=== PATIENT | female | born 1985 | race American Indian/Alaskan Native ===

== ENCOUNTER 2017-07-08 05:04 | Observation (INO) | payer OTHER ==
[2017-07-08 06:39] LABS: Mean Corpuscular HGB Conc 29 % (30-34); Platelet Count 914 K/mm3 (140-440); Red Blood Count 2.37 M/mm3 (3.65-5.03)
[2017-07-08 06:43] LABS: Mean Corpuscular Hemoglobin 19 pg (28-32); Mean Corpuscular Volume 66 fl (79-97); Red Cell Distribution Width 33.7 % (13.2-15.2)
[2017-07-08 06:47] LABS: Hematocrit 15.6 % (30.3-42.9); Hemoglobin 4.5 gm/dl (10.1-14.3)
[2017-07-08 06:52] LABS: BUN/Creatinine Ratio 17; Blood Urea Nitrogen 10 mg/dL (7-17); Calcium 8.9 mg/dL (8.4-10.2); Hemolysis Index 0
[2017-07-08] MEDS ORDERED: NACL 0.9% 500 ML 500 ML IV ONE (07:25)
--- NOTE | 2017-07-08 07:25 | Emergency Department Report ---
ED General Adult HPI - General Chief complaint: Dizziness Stated complaint: COLD SX, SWEATS Time Seen by Provider: 07/08/17 07:12 Source: patient Mode of arrival: Ambulatory Limitations: No Limitations - History of Present Illness Initial comments: Chief complaint: "I think I need some iron or blood transfusion." HPI: Ms. Wallace is a 32-year-old female with history of iron deficiency anemia. She required transfusion 3 years ago at [facility]. Recently she felt generally weak with lightheadedness, no history of syncope. She has diffuse facial pain. Her chest feels numb. She denies chest pain. She denies abdominal pain. She has heavy menses. She is currently menstruating. Her menses normally lasts 6 days. - Related Data Home Medications Medication Instructions Recorded Confirmed Last Taken No Known Home Medications [No 07/08/17 07/08/17 Unknown Reported Home Medications] Allergies Allergy/AdvReac Type Severity Reaction Status Date / Time No Known Allergies Allergy Unverified 07/08/17 05:58 ED Review of Systems ROS: Stated complaint: COLD SX, SWEATS Other details as noted in HPI Comment: All other systems reviewed and negative Constitutional: malaise. denies: fever Respiratory: denies: cough Cardiovascular: denies: palpitations ED Past Medical Hx - Past Medical History Additional medical history: Anemia - Surgical History Past Surgical History?: No - Social History Smoking Status: Current Every Day Smoker Substance Use Type: None - Medications Home Medications: Home Medications Medication Instructions Recorded Confirmed Last Taken Type No Known Home Medications [No 07/08/17 07/08/17 Unknown History Reported Home Medications] ED Physical Exam - General Limitations: No Limitations General appearance: alert, in no apparent distress - Head Head exam: Present: atraumatic, normocephalic - Eye Eye exam: Present: normal appearance - ENT ENT exam: Present: normal exam, normal orophraynx, mucous membranes moist - Neck Neck exam: Present: normal inspection - Respiratory Respiratory exam: Present: normal lung sounds bilaterally. Absent: respiratory distress, wheezes, rales, rhonchi - Cardiovascular Cardiovascular Exam: Present: regular rate, normal rhythm, normal heart sounds. Absent: bradycardia, tachycardia, systolic murmur, diastolic murmur, rubs, gallop - GI/Abdominal GI/Abdominal exam: Present: soft, normal bowel sounds. Absent: distended, tenderness, guarding, rebound - Rectal Rectal exam: Present: normal rectal tone, heme (-) stool, other (Brown stool). Absent: black stool, bloody stool, fecal impaction, hemorrhoids - Extremities Exam Extremities exam: Present: normal inspection - Back Exam Back exam: Present: normal inspection - Neurological Exam Neurological exam: Present: alert, oriented X3 - Psychiatric Psychiatric exam: Present: normal affect, normal mood - Skin Skin exam: Present: warm, dry, intact, normal color. Absent: rash ED Course Vital Signs 07/08/17 05:50 Temperature 98.3 F Pulse Rate 91 H Respiratory 20 Rate Blood Pressure 124/81 O2 Sat by Pulse 100 Oximetry ED Medical Decision Making - Lab Data Result diagrams: 07/08/17 06:04 07/08/17 06:04 Laboratory Results - last 24 hr 07/08/17 07/08/17 06:04 06:04 WBC 11.4 H RBC 2.37 L Hgb 4.5 L* Hct 15.6 L* MCV 66 L MCH 19 L MCHC 29 L RDW 33.7 H Plt Count 914 H Sodium 142 Potassium 4.8 Chloride 106.0 Carbon Dioxide 24 Anion Gap 17 BUN 10 Creatinine 0.6 L Estimated GFR > 60 BUN/Creatinine Ratio 17 Glucose 95 Calcium 8.9 Vital Signs - 24 hr 07/08/17 05:50 Temperature 98.3 F Pulse Rate 91 H Respiratory 20 Rate Blood Pressure 124/81 O2 Sat by Pulse 100 Oximetry - EKG Data 07/08/17 07:34 EKG obtained at 607 Normal sinus rhythm rate of 75 beats a minute normal axis normal intervals no ST elevation no T-wave abnormality - Medical Decision Making Ms. Wallace has hx of iron-deficiency anemia. She is now symptomatic with low H/ H 4/5/15.6. She desires transfusion. Dr. Fairbanks hospitalist accepted pt for admission. Critical care attestation.: If time is entered above; I have spent that time in minutes in the direct care of this critically ill patient, excluding procedure time. ED Disposition Clinical Impression: Iron deficiency anemia Disposition: OP ADMIT IP TO THIS HOSP Is pt being admited?: No Does the pt Need Aspirin: No Condition: Stable Time of Disposition: 07:42
[2017-07-08 08:11] LABS: Total Cells Counted 100
[2017-07-08 08:12] LABS: Anisocytosis 3+; Hypochromasia 3+; Poikilocytosis 1+; Tear Drop Cells 1+
[2017-07-08 08:13] LABS: Platelet Estimate Cons
[2017-07-08] MEDS ORDERED: NACL 0.9% 1000 ML 1,000 ML IV SCH (09:00)
--- NOTE | 2017-07-08 10:10 | History and Physical Report ---
History of Present Illness Date of examination: 07/08/17 Date of admission: 07/08/17 07:43 Chief complaint: generalized weakness History of present illness: Ms. Wallace is a 32-year-old female with history of iron deficiency anemia who required transfusion 3 years ago at [facility] presented with generalized weakness, lightheadedness for a week. Denies any history of syncope , chest pain or SOB. She states that she has heavy menses and currently menstruating. Her period normally lasts 6 days. She states that 3 years ago when she required blood transfusion she was told that she had iron deficiency, but she cannot tell any further details. In the Er her Hb noted to be 4.5. Blood transfusion started in the Er and called for admission for further evaluation. Past medical History: h/o iron deficiency anemia. Past surgical History: None Social History: Lives with family, denies any smoking, drinking and elicit drug abuse. Family History: No Significant h/o CAD, DM, stroke in the family. Review of System: Constitutional: no fever, no chills, no weight loss Ears, eyes, nose, mouth and throat: no nasal congestion, no nasal discharge, no sinus pressure, no vision change, no red eye. Neck: No neck pain or rigidity. Cardiovascular: No chest pain, no orthopnea, no palpitations, no leg swelling Respiratory: No shortness of breath, no cough, no congestion, no wheezing Gastrointestinal: no abdominal pain, no nausea, no vomiting Genitourinary : no dysuria, no hematuria, + menorrhagia Musculoskeletal: no joint swelling or muscle ache Integumentary: no rash, no pruritis Neurological: no parathesias, no numbness, no tingling Endocrine: no cold or heat intolerance, no polyuria or polydipsia Hematologic/Lymphatic: no easy bruising, no easy bleeding, no gland swelling Allergic/Immunologic: no urticaria, no angioedema. Medications and Allergies Allergies Allergy/AdvReac Type Severity Reaction Status Date / Time No Known Allergies Allergy Unverified 07/08/17 05:58 Home Medications Medication Instructions Recorded Confirmed Last Taken Type Ferrous Sulfate [Feosol 325 MG tab] 325 mg PO QDAY #30 tablet 07/09/17 Unknown Rx Active Meds: Active Medications Sodium Chloride (Nacl 0.9% 1000 Ml) 1,000 mls @ 100 mls/hr IV DIRECT BILL Exam - Physical Exam Narrative exam: GENERAL: well-developed and well-nourished AAF lying on bed appeared to be in no discomfort. HEENT: Normocephalic. Atraumatic. No conjunctival congestion or icterus. Patient has moist mucous membranes. NECK: Supple. Trachea midline. CHEST/LUNGS: Clear to auscultated bilaterally, breathing nonlabored. No wheezes crackles or rhonchi. HEART/CARDIOVASCULAR: Regular in rate and rhythm. S1 and S2 positive. ABDOMEN: Abdomen is soft, nontender. Patient has normal bowel sounds. SKIN: There is no rash. Warm and dry. NEURO: No focal motor deficit. Follows command. MUSCULOSKELETAL: No joint effusion or tenderness. EXTRIMITY: No edema, no cyanosis or clubbing. PSYCH: Cooperative. - Constitutional Vitals: Temp Pulse Resp BP Pulse Ox 98.6 F 84 16 102/53 100 07/08/17 09:45 07/08/17 09:45 07/08/17 09:45 07/08/17 09:45 07/08/17 09:45 Results - Labs CBC & Chem 7: 07/09/17 07:40 07/08/17 06:04 Labs: Abnormal lab results 07/08/17 07/08/17 07/08/17 Range/Units 06:04 06:04 06:05 WBC 11.4 H (4.5-11.0) K/mm3 RBC 2.37 L (3.65-5.03) M/mm3 Hgb 4.5 L* (10.1-14.3) gm/dl Hct 15.6 L* (30.3-42.9) % MCV 66 L (79-97) fl MCH 19 L (28-32) pg MCHC 29 L (30-34) % RDW 33.7 H (13.2-15.2) % Plt Count 914 H (140-440) K/mm3 Nucleated RBC % 2.0 H (0.0-0.9) % Seg Neutrophils # Man 8.0 H (1.8-7.7) K/mm3 Eosinophils # (Manual) 0.5 H (0.0-0.4) K/mm3 Creatinine 0.6 L (0.7-1.2) mg/dL Crossmatch See Detail Assessment and Plan Severe symptomatic anemia - likely Due to underlying menorrhagia - Patient was transfused 2 units in the ER - We will repeat H&H and will transfuse additional units if hemoglobin less than 7 History of menorrhagia - Likely due to fibroids, will order pelvic US - 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
[2017-07-09] MEDS ORDERED: NORCO 5/325 PO PRN (07:18)
[2017-07-09] MEDS ORDERED: REGLAN PO PRN (07:18)
[2017-07-09] MEDS ORDERED: TYLENOL PO PRN (07:18)
[2017-07-09 08:15] LABS: Hematocrit 21.9 % (30.3-42.9); Hemoglobin 6.9 gm/dl (10.1-14.3); Mean Corpuscular HGB Conc 32 % (30-34); Mean Corpuscular Volume 70 fl (79-97); Platelet Count 909 K/mm3 (140-440); Red Blood Count 3.12 M/mm3 (3.65-5.03)
[2017-07-09 08:18] LABS: Mean Corpuscular Hemoglobin 22 pg (28-32); Red Cell Distribution Width 32.4 % (13.2-15.2)
[2017-07-09] MEDS: PEPCID PO SCH ×2 (10:39→23:59)
[2017-07-09 11:36] LABS: Basophils % (Manual) 0 % (0.0-1.8); Total Cells Counted 100
[2017-07-09 11:37] LABS: Anisocytosis 3+; Hypochromasia 2+; Poikilocytosis 1+; Tear Drop Cells 1+
[2017-07-09 11:38] LABS: Large Platelets Few; Platelet Estimate Appe
[2017-07-09] MEDS ORDERED: NACL 0.9% 500 ML 500 ML IV ONE (14:00)
--- NOTE | 2017-07-09 17:10 | Ultrasound Report ---
FINAL REPORT EXAM: US TRANSVAGINAL HISTORY: menorrhagia TECHNIQUE: Ultrasound pelvis transvaginal PRIORS: None. FINDINGS: And the uterus measures 10.9 x 6.5 x 7.6 centimeters. At the fundus of the uterus there are 3 subserosal fibroids largest measuring 2.9 x 2.8 x 2.3 centimeters at the anterior aspect of the fundus. Endometrial stripe is 0.77 centimeters Right ovary is 3.8 x 2.9 x 3.2 centimeters. No abnormal mass or cyst identified. Left ovary is 3.6 x 3.1 x 3.2 centimeters. There is a 1.5 centimeter left ovarian cyst most likely dominant follicle No free fluid identified in the cul-de-sac IMPRESSION: Enlarged multi fibroid uterus
--- NOTE | 2017-07-09 17:16 | Ultrasound Report ---
FINAL REPORT EXAM: US PELVIC COMPLETE HISTORY: menorrhagia TECHNIQUE: Ultrasound pelvis transabdominal with pulsed and color Doppler evaluation PRIORS: None. FINDINGS: And the uterus measures 10.9 x 6.5 x 7.6 centimeters. At the fundus of the uterus there are 3 subserosal fibroids largest measuring 2.9 x 2.8 x 2.3 centimeters at the anterior aspect of the fundus. Endometrial stripe is 0.77 centimeters Right ovary is 3.8 x 2.9 x 3.2 centimeters. No abnormal mass or cyst identified. Left ovary is 3.6 x 3.1 x 3.2 centimeters. There is a 1.5 centimeter left ovarian cyst most likely dominant follicle No free fluid identified in the cul-de-sac IMPRESSION: Enlarged multi fibroid uterus
--- NOTE | 2017-07-09 18:12 | Progress Note ---
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 HEENT: Normocephalic. Atraumatic. No conjunctival congestion or icterus. Patient has moist mucous membranes. NECK: Supple. Trachea midline. CHEST/LUNGS: Clear to auscultated bilaterally, breathing nonlabored. No wheezes crackles or rhonchi. HEART/CARDIOVASCULAR: Regular in rate and rhythm. S1 and S2 positive. ABDOMEN: Abdomen is soft, nontender. Patient has normal bowel sounds. SKIN: There is no rash. Warm and dry. NEURO: No focal motor deficit. Follows command. MUSCULOSKELETAL: No joint effusion or tenderness. EXTRIMITY: No edema, no cyanosis or clubbing. PSYCH: Cooperative. - Constitutional Vitals: Vital Signs - 12hr 07/09/17 07/09/17 07/09/17 07:25 15:38 16:33 Temperature 98.9 F 98.3 F 98.6 F Pulse Rate 66 76 64 Respiratory 15 18 15 Rate Blood Pressure 131/74 118/71 114/64 O2 Sat by Pulse 100 100 100 Oximetry 07/09/17 16:51 Temperature 98.7 F Pulse Rate 74 Respiratory 18 Rate Blood Pressure 108/63 O2 Sat by Pulse 100 Oximetry - Labs CBC & Chem 7: 07/10/17 04:53 07/08/17 06:04 Labs: Abnormal lab results 07/08/17 07/09/17 Range/Units 06:05 07:40 RBC 3.12 L (3.65-5.03) M/mm3 Hgb 6.9 L (10.1-14.3) gm/dl Hct 21.9 L D (30.3-42.9) % MCV 70 L (79-97) fl MCH 22 L (28-32) pg RDW 32.4 H (13.2-15.2) % Plt Count 909 H (140-440) K/mm3 Nucleated RBC % 1.0 H (0.0-0.9) % Crossmatch See Detail
[2017-07-09 23:30] LABS: Hematocrit 25.7 % (30.3-42.9); Hemoglobin 8.1 gm/dl (10.1-14.3)
[2017-07-10 05:27] LABS: Hematocrit 26.5 % (30.3-42.9); Hemoglobin 8.4 gm/dl (10.1-14.3); Mean Corpuscular HGB Conc 32 % (30-34); Mean Corpuscular Volume 72 fl (79-97); Platelet Count 851 K/mm3 (140-440); Red Blood Count 3.68 M/mm3 (3.65-5.03)
[2017-07-10 06:07] LABS: Mean Corpuscular Hemoglobin 23 pg (28-32); Red Cell Distribution Width 30.8 % (13.2-15.2)
[2017-07-10 08:09] LABS: Basophils % (Manual) 0 % (0.0-1.8); Total Cells Counted 100
[2017-07-10 08:10] LABS: Anisocytosis 3+; Giant Platelets Few; Hypochromasia 2+; Tear Drop Cells 1+
[2017-07-10 08:11] LABS: Platelet Estimate Appears Increased
[2017-07-10 08:43] VITALS: BP 122/67
[2017-07-10] MEDS: PEPCID PO SCH (09:09)
--- NOTE | 2017-07-10 10:10 | Discharge Summary ---
Providers - Providers Date of Admission: 07/08/17 07:43 Date of discharge: 07/10/17 Attending physician: AMBER HARRIS 07/09/17 10:10 Consult to Physician [CONS] Routine Consulting Provider: ANSELMO ABURTO Reason For Exam: menorrhagia Place consult to:: global expansion sales director obg/obgyn nurse Notified:: DR. Emily ABURTO OFFICE Phone number called:: [phone] Was contact made?: Yes If yes, spoke with:: TERESE Time called:: 11:20 Comment:: JANET NOTIFIED Primary care physician: FIELD ACCOUNT MANAGER Hospitalization Condition: Stable Hospital course: Ms. Wallace is a 32-year-old female with history of iron deficiency anemia who required transfusion 3 years ago at [facility] presented with generalized weakness, lightheadedness for a week. In the Er her Hb noted to be 4.5. Blood transfusion started in the Er and called for admission for further evaluation. 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 HEENT: Normocephalic. Atraumatic. No conjunctival congestion or icterus. Patient has moist mucous membranes. NECK: Supple. Trachea midline. CHEST/LUNGS: Clear to auscultated bilaterally, breathing nonlabored. No wheezes crackles or rhonchi. HEART/CARDIOVASCULAR: Regular in rate and rhythm. S1 and S2 positive. ABDOMEN: Abdomen is soft, nontender. Patient has normal bowel sounds. SKIN: There is no rash. Warm and dry. NEURO: No focal motor deficit. Follows command. MUSCULOSKELETAL: No joint effusion or tenderness. EXTRIMITY: No edema, no cyanosis or clubbing. PSYCH: Cooperative. - Constitutional Vitals: Temp Pulse Resp BP Pulse Ox 98.0 F 65 18 122/67 99 07/10/17 07:23 07/10/17 07:23 07/10/17 07:23 07/10/17 07:23 07/10/17 07:23 - Respiratory Respiratory: bilateral: CTA - Cardiovascular Heart Sounds: Absent: rub, click Plan Activity: advance as tolerated Weight Bearing Status: Weight Bear as Tolerated Diet: regular Follow up with: PRIMARY CARE, [Primary Care Provider] - 7 Days Prescriptions: Ferrous Sulfate [Feosol 325 MG tab] 325 mg PO QDAY #30 tablet
== END 2017-07-10 14:00 | disposition home or self-care (01) ==
LOC: ED 05:04 → 3A 07:43
PROVIDERS: ADMIT Internal Medicine; ATTEND Internal Medicine
DX: D50.9 Iron deficiency anemia, unspecified (principal); D47.3 Essential (hemorrhagic) thrombocythemia; D72.829 Elevated white blood cell count, unspecified; F17.200 Nicotine dependence, unspecified, uncomplicated
CPT/HCPCS: 36415; 36430; 76830; 76856; 80048; 85007; 85014; 85018; 85025; 86850; 86900; 86901; 86920; 93005; 93010; 96360; 96361; 99285; 99406; G0378; J7030; J7040; P9016

== ENCOUNTER 2018-01-01 22:07 | Inpatient (IN) | payer SELFPAY ==
[2018-01-02 02:05] LABS: BUN/Creatinine Ratio 13; Blood Urea Nitrogen 9 mg/dL (7-17); Calcium 9.5 mg/dL (8.4-10.2); Hemolysis Index 0
[2018-01-02 02:09] LABS: Hematocrit 21.7 % (30.3-42.9); Hemoglobin 6.4 gm/dl (10.1-14.3); Mean Corpuscular HGB Conc 30 % (30-34); Mean Corpuscular Hemoglobin 17 pg (28-32); Mean Corpuscular Volume 59 fl (79-97); Platelet Count 510 K/mm3 (140-440); Red Blood Count 3.68 M/mm3 (3.65-5.03); Red Cell Distribution Width 19.9 % (13.2-15.2)
[2018-01-02 02:54] LABS: Bilirubin,Urine NEG (Negative); Blood,Urine NEG (Negative); Color,Urine Yellow (Yellow); Mucus,Urine 2+ /HPF; Protein,Urine <15 mg/dL mg/dL (Negative)
[2018-01-02] MEDS ORDERED: NACL 0.9% 500 ML 500 ML IV ONE ×2 (05:48→08:10)
--- NOTE | 2018-01-02 06:04 | XRay Report ---
FINAL REPORT EXAM: XR CHEST ROUTINE 2V HISTORY: weakness TECHNIQUE: PA and lateral chest radiographs PRIORS: None. FINDINGS: No mediastinal shift. Cardiac silhouette is not enlarged. No pneumothorax, effusion, or focal pulmonary opacity. No acute skeletal finding. IMPRESSION: No focal pulmonary opacity.
[2018-01-02 06:47] LABS: Band Neutrophils # (Manual) 0.3 K/mm3; Basophils % (Manual) 0 % (0.0-1.8); Total Cells Counted 100
[2018-01-02 06:48] LABS: Anisocytosis 3+; Hypochromasia 2+; Large Platelets Few; Ovalocytes Few; Platelet Estimate Appears Increased; Tear Drop Cells 1+
[2018-01-02 07:13] LABS: Bilirubin,Urine NEG (Negative); Blood,Urine NEG (Negative); Color,Urine Yellow (Yellow); Mucus,Urine 3+ /HPF; Protein,Urine <15 mg/dL mg/dL (Negative)
[2018-01-02 07:13] LABS: INR 0.95 (0.87-1.13)
--- NOTE | 2018-01-02 07:57 | Emergency Department Report ---
- General Chief complaint: Weakness Stated complaint: POSS LOW IRON/STD CHECK/ACNE Time Seen by Provider: 01/02/18 07:56 Source: patient Mode of arrival: Ambulatory Limitations: No Limitations - History of Present Illness Initial comments: 32-year-old female presents emergency room for weakness 4 days. Patient states that she has iron deficiency anemia and is not able to take her iron pills due to upsetting her stomach. Patient states his been months that she is taking her iron pills. Patient denies abdominal pain. Patient denies rectal bleeding patient denies vomiting blood. Patient denies nausea vomiting. Patient denies chest pain shortness of breath. Patient's only complaint is weakness. Patient states her last menstrual period was 12/28/2017. She also states she would like to be checked for STDs. Patient denies vaginal discharge and dysuria. Patient denies urinary complaints. Patient denies fever or chills. MD Complaint: generalized weakness -: Gradual Consistency: constant Improves with: rest Worsens with: medication Associated Symptoms: denies other symptoms. denies: chest pain, confusion, dark stools, diaphoresis, dysuria, easy bruising, fever/chills, headaches, loss of appetite, nausea/vomiting, myalgias, rash, shortness of breath, syncope - Related Data Previous Rx's Medication Instructions Recorded Last Taken Type Ferrous Sulfate [Feosol 325 MG tab] 325 mg PO QDAY #30 tablet 07/09/17 Unknown Rx Allergies Allergy/AdvReac Type Severity Reaction Status Date / Time No Known Allergies Allergy Unverified 07/08/17 05:58 ED Review of Systems ROS: Stated complaint: POSS LOW IRON/STD CHECK/ACNE Other details as noted in HPI Constitutional: weakness. denies: chills, fever Eyes: denies: eye pain, eye discharge, vision change ENT: denies: ear pain, throat pain Respiratory: denies: cough, shortness of breath, wheezing Cardiovascular: denies: chest pain, palpitations Endocrine: no symptoms reported Gastrointestinal: denies: abdominal pain, nausea, diarrhea Genitourinary: denies: urgency, dysuria, discharge Musculoskeletal: denies: back pain, joint swelling, arthralgia Skin: denies: rash, lesions Neurological: weakness. denies: headache, paresthesias Psychiatric: denies: anxiety, depression Hematological/Lymphatic: denies: easy bleeding, easy bruising ED Past Medical Hx - Past Medical History Previous Medical History?: Yes Hx Congestive Heart Failure: No Hx Diabetes: No Hx Sickle Cell Disease: No Hx Asthma: No Hx COPD: No Hx HIV: No Additional medical history: Anemia - Surgical History Past Surgical History?: No Hx Open Heart Surgery: No Hx Cholecystectomy: No Hx Appendectomy: No Hx Breast Surgery: No - Family History Family history: no significant - Social History Smoking Status: Current Every Day Smoker Substance Use Type: Alcohol, Marijuana - Medications Home Medications: Home Medications Medication Instructions Recorded Confirmed Last Taken Type Ferrous Sulfate [Feosol 325 MG tab] 325 mg PO QDAY #30 tablet 07/09/17 Unknown Rx ED Physical Exam - General Limitations: No Limitations General appearance: alert, in no apparent distress - Head Head exam: Present: atraumatic, normocephalic - Eye Eye exam: Present: normal appearance - ENT ENT exam: Present: mucous membranes moist - Neck Neck exam: Present: normal inspection - Respiratory Respiratory exam: Present: normal lung sounds bilaterally. Absent: respiratory distress - Cardiovascular Cardiovascular Exam: Present: regular rate, normal rhythm. Absent: systolic murmur, diastolic murmur, rubs, gallop - GI/Abdominal GI/Abdominal exam: Present: soft, normal bowel sounds - Extremities Exam Extremities exam: Present: normal inspection - Back Exam Back exam: Present: normal inspection - Neurological Exam Neurological exam: Present: alert, oriented X3 - Psychiatric Psychiatric exam: Present: normal affect, normal mood - Skin Skin exam: Present: warm, dry, intact, normal color. Absent: rash - Assessment Assessment Interval: Baseline - Level of Consciousness 1a. Level of Consciousness: alert - LOC Questions 1b. LOC Questions: answers correctly - LOC Command 1c. LOC Commands: performs tasks correctly - Best Gaze 2. Best Gaze: normal - Visual 3. Visual: no visual loss - Facial Palsy 4. Facial Palsy: normal symmetrical movement - Motor Arm 5b. Motor Arm Right: no drift 5a. Motor Arm Left: no drift - Motor Leg 6a. Motor Leg Left: no drift 6b. Motor Leg Right: no drift - Limb Ataxia 7. Limb Ataxia: absent - Sensory 8. Sensory: normal - Best Language 9. Best Language: no aphasia - Dysarthria 10. Dysarthria: normal - Extinction and Inattention 11. Extinction/Inattention: no abnormality - Scoring Total Score: 0 Stroke Severity: No Stroke Symptoms ED Course Vital Signs 01/01/18 01/02/18 01/02/18 23:59 07:18 07:20 Temperature 98.5 F Pulse Rate 95 H 79 85 Respiratory 16 16 16 Rate Blood Pressure 138/71 138/75 Blood Pressure [Right] O2 Sat by Pulse 100 100 Oximetry 01/02/18 01/02/18 01/02/18 07:30 07:37 07:40 Temperature 98.3 F Pulse Rate 73 78 64 Respiratory 13 12 16 Rate Blood Pressure 138/75 138/75 Blood Pressure 138/75 [Right] O2 Sat by Pulse 100 100 100 Oximetry 01/02/18 01/02/18 01/02/18 07:50 08:00 08:10 Temperature Pulse Rate 69 86 75 Respiratory 13 12 17 Rate Blood Pressure 138/75 138/75 138/75 Blood Pressure [Right] O2 Sat by Pulse 100 100 Oximetry 01/02/18 01/02/18 01/02/18 08:20 08:30 08:40 Temperature Pulse Rate 68 67 69 Respiratory 13 15 14 Rate Blood Pressure 138/75 138/75 138/75 Blood Pressure [Right] O2 Sat by Pulse 100 100 100 Oximetry 01/02/18 01/02/18 01/02/18 08:50 09:00 09:05 Temperature 98.4 F Pulse Rate 85 72 73 Respiratory 20 12 14 Rate Blood Pressure 138/75 138/75 114/74 Blood Pressure [Right] O2 Sat by Pulse 100 Oximetry 01/02/18 01/02/18 01/02/18 09:10 09:20 09:25 Temperature 98.3 F Pulse Rate 68 63 69 Respiratory 14 12 14 Rate Blood Pressure 114/74 114/74 129/78 Blood Pressure [Right] O2 Sat by Pulse 100 100 100 Oximetry 01/02/18 01/02/18 01/02/18 09:30 09:40 09:50 Temperature Pulse Rate 64 99 H 69 Respiratory 15 20 14 Rate Blood Pressure 129/78 129/78 129/78 Blood Pressure [Right] O2 Sat by Pulse 100 63 L 100 Oximetry 01/02/18 01/02/18 01/02/18 09:55 10:00 10:10 Temperature 97.5 F L Pulse Rate 67 68 64 Respiratory 16 13 11 L Rate Blood Pressure 141/84 147/84 129/78 Blood Pressure [Right] O2 Sat by Pulse 100 100 100 Oximetry 01/02/18 01/02/18 01/02/18 10:20 10:30 10:40 Temperature 97.7 F Pulse Rate 85 65 68 Respiratory 16 11 L 12 Rate Blood Pressure 129/78 129/78 129/78 Blood Pressure [Right] O2 Sat by Pulse 100 100 98 Oximetry 01/02/18 10:50 Temperature Pulse Rate 71 Respiratory 17 Rate Blood Pressure 129/78 Blood Pressure [Right] O2 Sat by Pulse 95 Oximetry - Reevaluation(s) Reevaluation #1: Discussed plan of care with patient. Patient agrees with plan of care. Patient informed that procedure can be done as an outpatient at a health department. Or possibly taken care of by the admitting team. Patient to be admitted to the hospitalist service for further evaluation and treatment. Patient agrees with admission. All results DISCUSSED with patient 01/02/18 08:08 01/02/18 08:09 - Consultations Consultation #1: Dr. Fairbanks consulted for admission. Patient will be admitted to the hospitalist service. Hospitalist to assumed care. 01/02/18 08:09 ED Medical Decision Making - Lab Data Result diagrams: 01/02/18 01:07 01/02/18 01:07 - Radiology Data Radiology results: report reviewed, image reviewed interpreted by me: No acute findings on chest x-ray EXAM: XR CHEST ROUTINE 2V HISTORY: weakness TECHNIQUE: PA and lateral chest radiographs PRIORS: None. FINDINGS: No mediastinal shift. Cardiac silhouette is not enlarged. No pneumothorax, effusion, or focal pulmonary opacity. No acute skeletal finding. IMPRESSION: No focal pulmonary opacity. Transcribed By: MB Dictated By: SHAHLA VERA MD Electronically Authenticated By: SHAHLA VERA MD Signed Date/Time: 01/02/18 0557 - Medical Decision Making Patient is a 32-year-old female that presents to emergency room with complaints of weakness patient found to be severely anemic and will be admitted to hospital service for observation and transfusion. Patient to be admitted to the hospitalist service for further evaluation treatment. Patient also presents emergency room with complaints of acne and wanting STD screening. Patient informed she can take care of this on the inpatient side or take care of it as an outpatient. - Differential Diagnosis weakness. anemia. dehydration. Critical care attestation.: If time is entered above; I have spent that time in minutes in the direct care of this critically ill patient, excluding procedure time. ED Disposition Clinical Impression: Severe anemia, Weakness Iron deficiency anemia Qualifiers: Iron deficiency anemia type: unspecified iron deficiency Qualified Code(s): D50.9 - Iron deficiency anemia, unspecified Disposition: OP ADMIT IP TO THIS HOSP Is pt being admited?: Yes Does the pt Need Aspirin: No Condition: Serious Time of Disposition: 08:12
--- NOTE | 2018-01-02 08:10 | History and Physical Report ---
History of Present Illness Date of examination: 01/02/18 Date of admission: 01/02/18 Chief complaint: General weakness and severe anemia History of present illness: Very pleasant 32-year-old -N[place]alese female patient with significant past medical history of menorrhagia secondary to fibroid uterus Admitted 6 months ago, received blood transfusion, ultrasound consistent with fibroid uterus, did not follow-up with [facility] H[facility] Presented to the emergency room with generalized weakness, and deficiency anemia. Patient denies any vaginal bleeding last menstrual period was 12/28/2017 Denies nausea or vomiting or abdominal pain, no hematemesis melena, no hematuria Complaints of generalized weakness worsening shortness of breath on exertion and fatigue Initial workup consistent with severe anemia hemoglobin of 6.4 Denies chest pain or shortness of breath Past History Past Medical History: anemia (iron deficiency anemia), other (menorrhagia, fibroid uterus) Past Surgical History: No surgical history Social history: smoking, alcohol abuse, other (marijuana) Family history: hypertension Medications and Allergies Allergies Allergy/AdvReac Type Severity Reaction Status Date / Time No Known Allergies Allergy Unverified 07/08/17 05:58 Home Medications Medication Instructions Recorded Confirmed Last Taken Type Ferrous Sulfate [Feosol 325 MG tab] 325 mg PO QDAY #30 tablet 07/09/17 Unknown Rx Review of Systems Constitutional: fatigue, weakness, no weight loss, no weight gain Ears, nose, mouth and throat: no nasal congestion, no nasal discharge Cardiovascular: no chest pain, no orthopnea, no palpitations Respiratory: no cough, no shortness of breath Gastrointestinal: no abdominal pain, no nausea, no vomiting Genitourinary Female: menorrhagia, no flank pain, no dysuria Musculoskeletal: no myalgias, no arthritis Integumentary: no rash, no lesions Neurological: weakness, no seizures, no syncope Psychiatric: no anxiety, no depression Endocrine: no cold intolerance, no heat intolerance, no polydipsia, no polyuria Hematologic/Lymphatic: no easy bruising, no easy bleeding Allergic/Immunologic: no urticaria, no allergic rhinitis Exam - Constitutional Vitals: Temp Pulse Resp BP Pulse Ox 98.3 F 78 12 138/75 100 01/02/18 07:37 01/02/18 07:37 01/02/18 07:37 01/02/18 07:37 01/02/18 07:37 General appearance: Present: no acute distress, well-nourished - EENT Eyes: Present: PERRL, EOM intact - Neck Neck: Present: supple, normal ROM - Respiratory Respiratory effort: normal Respiratory: negative: rales, rhonchi, wheezing - Cardiovascular Rhythm: regular Heart Sounds: Present: S1 & S2 - Extremities Extremities: no ischemia, No edema - Abdominal General gastrointestinal: Present: soft, non-tender, non-distended, normal bowel sounds - Integumentary Integumentary: Present: clear, warm, pale - Musculoskeletal Musculoskeletal: strength equal bilaterally, generalized weakness - Psychiatric Psychiatric: appropriate mood/affect, cooperative - Neurologic Neurologic: CNII-XII intact, moves all extremities Results - Labs CBC & Chem 7: 01/02/18 01:07 01/02/18 01:07 Labs: Abnormal lab results 01/02/18 01/02/18 01/02/18 Range/Units 01:07 06:07 Unknown Hgb 6.4 L (10.1-14.3) gm/dl Hct 21.7 L (30.3-42.9) % MCV 59 L (79-97) fl MCH 17 L (28-32) pg RDW 19.9 H (13.2-15.2) % Plt Count 510 H (140-440) K/mm3 Eosinophils % (Manual) 7.0 H (0.0-4.3) % Nucleated RBC % 6.0 H (0.0-0.9) % Eosinophils # (Manual) 0.7 H (0.0-0.4) K/mm3 Urine WBC (Auto) 11.0 H (0.0-6.0) /HPF U Epithel Cells (Auto) 18.0 H (0-13.0) /HPF Crossmatch See Detail Assessment and Plan --Symptomatic anemia; Supportive care, transfuse 2 units PRBC, and supplements ---Deficiency anemia; secondary to chronic blood loss Due to menorrhagia, blood transfusion, iron supplements --History of menorrhagia; secondary to fibroid uterus Continue supportive care, patient advised to follow [facility] HISTORIAN upon discharge --History of fibroid uteru; advised to follow [facility] HISTORIAN for further evaluation and management --Thrombocytosis; probably secondary to reactive thrombocytosis --Ongoing tobacco use; smoking cessation counseling, nicotine patch as needed --Recreational drug use; strongly advised to quit recreational drugs, counseling done --DVT prophylaxis; SCDs, no pharmacologic anticoagulation Secondary to severe anemia Closely monitor the patient, if hemoglobin level is reasonable If patient's symptoms improved, patient may be discharged home tomorrow Plan of care reviewed with the patient and her nurse
[2018-01-02] MEDS ORDERED: NACL 0.9% 500 ML 500 ML ONE ×2 (08:53→21:45)
[2018-01-02] MEDS ORDERED: PROTONIX PO ONE (09:32)
[2018-01-02] MEDS: FEOSOL PO SCH (09:40)
[2018-01-02] MEDS: PROTONIX PO SCH (09:40)
[2018-01-03] MEDS: FEOSOL PO SCH (11:06)
[2018-01-03] MEDS: PROTONIX PO SCH (11:06)
[2018-01-03 11:55] LABS: Hemoglobin 9.7 gm/dl (10.1-14.3); Red Blood Count 4.52 M/mm3 (3.65-5.03)
[2018-01-03 11:56] LABS: Hematocrit 31.1 % (30.3-42.9); Mean Corpuscular Hemoglobin 21 pg (28-32); Mean Corpuscular Volume 69 fl (79-97)
[2018-01-03 11:57] LABS: Mean Corpuscular HGB Conc 31 % (30-34); Platelet Count 383 K/mm3 (140-440); Red Cell Distribution Width 30.7 % (13.2-15.2)
[2018-01-03 12:13] LABS: Total Cells Counted 100
[2018-01-03 12:15] LABS: Hypochromasia 2+; Target Cells Few; Tear Drop Cells Few
[2018-01-03 12:16] LABS: Platelet Estimate Consistent w Auto
[2018-01-03 13:35] VITALS: BP 153/91
--- NOTE | 2018-01-03 14:52 | Discharge Summary ---
Providers - Providers Date of Admission: 01/02/18 08:10 Date of discharge: 01/03/18 Attending physician: AMBER HARRIS Primary care physician: GRAVITY PROSPECTOR Hospitalization Condition: Serious Hospital course: 32-year-old -[place] female patient with significant past medical history of menorrhagia secondary to fibroid uterusAdmitted 6 months ago, received blood transfusion, ultrasound consistent with fibroid uterus, did not follow-up with GYNPresented to the emergency room with generalized weakness, and deficiency anemia. Patient denies any vaginal bleeding last menstrual period was 12/28/2017, Initial workup consistent with severe anemia hemoglobin of 6.4. she was transfused 2 units PRBC and then discharged home in stable condition. Discharge diagnosis: Symptomatic anemia; s/p transfused 2 units PRBC, Iron Deficiency anemia; secondary to chronic blood loss Due to menorrhagia, blood transfusion, iron supplements History of menorrhagia; secondary to fibroid uterus, patient advised to follow [facility] [employer] CHIEF ENGINEER upon discharge History of fibroid uteru; advised to follow [facility] [employer] CHIEF ENGINEER for further evaluation and management Thrombocytosis; probably secondary to reactive thrombocytosis Ongoing tobacco use; smoking cessation counseling, nicotine patch as needed Recreational drug use; strongly advised to quit recreational drugs, counseling done DVT prophylaxis; SCDs, no pharmacologic anticoagulation Secondary to severe anemia Disposition: DC-01 TO HOME OR SELFCARE Time spent for discharge: 32 minutes Core Measure Documentation - Palliative Care Palliative Care/ Comfort Measures: Not Applicable - Core Measures Any of the following diagnoses?: none Exam - Constitutional Vitals: Temp Pulse Resp BP Pulse Ox 97.4 F L 74 20 153/91 100 01/03/18 11:52 01/03/18 11:52 01/03/18 11:52 01/03/18 11:52 01/03/18 11:52 General appearance: Present: no acute distress, well-nourished - EENT Eyes: Present: PERRL ENT: hearing intact, clear oral mucosa - Neck Neck: Present: supple, normal ROM - Respiratory Respiratory effort: normal Respiratory: bilateral: CTA - Cardiovascular Heart Sounds: Present: S1 & S2. Absent: rub, click - Extremities Extremities: pulses symmetrical, No edema Peripheral Pulses: within normal limits - Abdominal General gastrointestinal: Present: soft, non-tender, non-distended, normal bowel sounds - Integumentary Integumentary: Present: clear, warm, dry - Musculoskeletal Musculoskeletal: gait normal, strength equal bilaterally - Psychiatric Psychiatric: appropriate mood/affect, intact judgment & insight - Neurologic Neurologic: CNII-XII intact, moves all extremities Plan Activity: advance as tolerated Weight Bearing Status: Weight Bear as Tolerated Diet: regular Additional Instructions: f/u with 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
== END 2018-01-03 22:00 | disposition home or self-care (01) | DRG 761 ==
LOC: ED 22:07 → 3A 01-02 08:10 → UNDODISIN 01-03 19:00
PROVIDERS: ADMIT Internal Medicine; ATTEND Internal Medicine
PROC: 30233N1 Transfusion of Nonautologous Red Blood Cells into Peripheral Vein, Percutaneous Approach (ICD-10-PCS; principal; 2018-01-02)
DX: N92.0 Excessive and frequent menstruation with regular cycle (principal); D50.9 Iron deficiency anemia, unspecified; D25.9 Leiomyoma of uterus, unspecified; D47.3 Essential (hemorrhagic) thrombocythemia; F12.90 Cannabis use, unspecified, uncomplicated; F19.90 Other psychoactive substance use, unspecified, uncomplicated; F17.200 Nicotine dependence, unspecified, uncomplicated; Z71.6 Tobacco abuse counseling; Z71.51 Drug abuse counseling and surveillance of drug abuser; Z82.49 Family history of ischemic heart disease and other diseases of the circulatory system; Z72.89 Other problems related to lifestyle; Z79.899 Other long term (current) drug therapy
CPT/HCPCS: 36415; 71046; 80048; 81001; 83690; 84703; 85007; 85025; 85610; 85730; 86850; 86900; 86901; 86920; 93005; 93010; 96360; 96361; J7040; P9016